=== PATIENT | male | born 1995 | race Caucasian/White ===

== ENCOUNTER 2023-07-19 05:40 | Emergency (ER) | payer OTHER ==
[~2023-07-19] VITALS: Ht 167.6 cm; Wt 68.0 kg
[2023-07-19 05:40] VITALS: BP 131/90; PULSE 90; RESP 16; TEMP 97.7; O2SAT 98
[2023-07-19 06:06] VITALS: BP 131/90; PULSE 90; RESP 16; TEMP 98; O2SAT 98
== END 2023-07-19 06:06 ==
LOC: MED 05:40
DX: S10.81XA Abrasion of other specified part of neck, initial encounter (principal); V49.88XA Car occupant (driver) (passenger) injured in other specified transport accidents, initial encounter; Y93.89 Activity, other specified; Y92.89 Other specified places as the place of occurrence of the external cause; Y99.8 Other external cause status
CPT/HCPCS: 99283